=== PATIENT | female | born 1965 | race Caucasian/White ===

== ENCOUNTER 2019-11-23 09:18 | Emergency (ER) | payer BC, OTHER ==
--- NOTE | 2019-11-23 10:02 | ED ---
Skin Complaint - HPI Summary HPI Summary: Patient is a 54-year-old female who presents emergency department for ongoing rash to chin 2 weeks. Patient states she had a small pimple to the chin which she squeezed about 2 weeks ago. Patient states area progressively became more red, irritated and itchy. Pt. states area is draining a yellowish/clear drainage. Patient has been seen by her PCP a few times over the last 2 weeks and has been on Keflex, bactroban, clindamycin and currently on Augmentin. No significant past medical hx. Pt. states that PCP is trying to get her derm apt. Pt. denies fever, N/V. Pt. states redness is spreading and extremely itchy. Sxs are mild in severity. No current modifying factors. - History of Current Complaint Chief Complaint: EDRashSkinAbscess Time Seen by Provider: 11/23/19 09:41 Stated Complaint: RASH ON FACE PER PT Hx Obtained From: Patient Pain Intensity: 10 - Allergy/Home Medications Allergies/Adverse Reactions: Allergies Allergy/AdvReac Type Severity Reaction Status Date / Time adhesive Allergy Rash Verified 11/23/19 09:22 Home Medications: Home Medications RX: Amoxicillin/Clavulanate TAB* [Augmentin TAB 875*] 1 tab PO BID 11/23/19 [ History Confirmed 11/23/19] RX: DULoxetine DR CAP* [Cymbalta CAP*] 20 mg PO BID 11/23/19 [History Confirmed 11/23/19] PMH/Surg Hx/FS Hx/Imm Hx Previously Healthy: Yes Endocrine/Hematology History: Denies: Hx Diabetes Cardiovascular History: Denies: Hx Hypertension, Hx Pacemaker/ICD GI History: Reports: Hx Gastroesophageal Reflux Disease - NO MEDICATION FOR History: Denies: Hx Renal Disease Musculoskeletal History: Reports: Hx Arthritis - SHOULDERS AND RIGHT PINKY, ? BACK Sensory History: Reports: Hx Contacts or Glasses - GLASSES Denies: Hx Hearing Aid Opthamlomology History: Reports: Hx Contacts or Glasses - GLASSES Neurological History: Reports: Other Neuro Impairments/Disorders - HEADACHES OFTEN Psychiatric History: Reports: Hx Anxiety - ON MEDICATION FOR, Hx Depression - ON MEDICATION FOR Denies: Hx Panic Disorder - Cancer History Hx Chemotherapy: No Hx Radiation Therapy: No - Surgical History Surgery Procedure, Year, and Place: [id number]. TUBAL LIGATION- [place] RIGHT WRIST CARPAL TUNNEL RELEASE-[facility] LEFT CARPAL TUNNEL Hx Anesthesia Reactions: No Infectious Disease History: No Infectious Disease History: Denies: Traveled Outside the [place] in Last 30 Days - Family History Known Family History: Positive: Non-Contributory - Social History Occupation: Employed Full-time Lives: Alone Alcohol Use: Occasionally Substance Use Type: Reports: Marijuana Substance Use Comment - Amount & Last Used: [id number] USED 03/28/16 Smoking Status (MU): Light Every Day Tobacco Smoker Amount Used/How Often: 1/2 PPD OFF AND ON X 30 YEARS Have You Smoked in the Last Year: Yes Review of Systems Constitutional: Negative Negative: Fever, Chills Gastrointestinal: Negative Positive: Other - Rash to chin All Other Systems Reviewed And Are Negative: Yes Physical Exam Triage Information Reviewed: Yes Vital Signs On Initial Exam: Initial Vitals Temp Pulse Resp BP Pulse Ox 97.4 F 100 16 159/112 98 11/23/19 09:19 11/23/19 09:19 11/23/19 09:19 11/23/19 09:19 11/23/19 09:19 Vital Signs Reviewed: Yes Appearance: Positive: Well-Appearing - Pt. sitting on bed in NAD. Holding ice pack to chin. Skin: Positive: Warm, Dry Head/Face: Positive: Other - Large area of erythema over chin. Area is wet with yellowish crusting. Mild edema. No induration or fluctuance. Eyes: Positive: Normal, EOMI, SUZI, Conjunctiva Clear Neck: Positive: Supple, Nontender, No Lymphadenopathy Neurological: Positive: Normal, CN Intact II-III Psychiatric: Positive: Affect/Mood Appropriate Procedures - Sedation Patient Received Moderate/Deep Sedation with Procedure: No Diagnostics - Vital Signs Vital Signs Temp Pulse Resp BP Pulse Ox 11/23/19 09:19 97.4 F 100 16 159/112 98 - Laboratory Result Diagrams: 11/23/19 10:08 11/23/19 10:08 Lab Statement: Any lab studies that have been ordered have been reviewed, and results considered in the medical decision making process. Course/Dx - Course Course Of Treatment: Pt. with ongoing redness and itching to chin. Afebrile and nontoxic appearing. Exam most consistant with a staff infection. Pt. examined by Dr. Barbosa as well. Wound culture obtained. Basic labs obtained to r/o systemic infection. Minimal elevation in WBC, CRP normal. Will have pt. continue augmentin. Advised to not apply any creams of lotions. Atarax rx for itch. To call derm to jane morning for apt. Will return for fever, increased redness, swelling. Pt. understands and agrees with plan. - Differential Diagnoses - Skin Complaint Differential Diagnoses: Abscess, Cellulitis, Contact Dermatitis, Impetigo - Diagnoses Provider Diagnoses: Staphylococcal infection of skin, Rash Discharge ED - Sign-Out/Discharge Documenting (check all that apply): Patient Departure - Discharge Plan Condition: Good Disposition: HOME Prescriptions: hydrOXYzine HCL TAB* [Atarax 25 MG TAB*] 25 mg PO QID PRN #12 tab PRN Reason: Itching Patient Education Materials: Impetigo (ED) Referrals: Ebony Wise MD [Primary Care Provider] - Betzaida Dorantes [Medical Doctor] - Additional Instructions: Call Dr. Dorantes's office tomorrow morning to schedule a follow up appointment as soon as possible Continue Augmentin as directed Keep area clean and dry Return to ER for fever, spreading redness/swelling or if concerned - Billing Disposition and Condition Condition: GOOD Disposition: Home
[2019-11-23 10:16] LABS: ABS Basophils 0.1 10^3/ul (0-0.2); ABS Eosinophils 0.3 10^3/ul (0-0.6); ABS Lymphocytes 2.7 10^3/ul (1.0-4.8); ABS Monocytes 0.4 10^3/ul (0-0.8); ABS Neutrophils 8.1 10^3/ul (1.5-7.7); Eosinophil % 2.5 %; Hematocrit 46 % (35-47); Hemoglobin 16.2 g/dL (12.0-16.0); Mean Corpuscular HGB Conc 35 g/dL (31-36); Mean Corpuscular Hemoglobin 33 pg (27-31); Mean Corpuscular Volume 95 fL (80-97); Mean Platelet Volume 8.2 fL (7.4-10.4); Nucleated Red Blood Cells % 0.1; Platelet Count 231 10^3/uL (150-450); Red Blood Count 4.91 10^6 /uL (3.70-4.87); Red Cell Distribution Width 13 % (10-15); White Blood Count 11.7 10^3/uL (3.5-10.8)
[2019-11-23 10:31] LABS: Albumin 4.3 g/dL (3.2-5.2); Albumin/Globulin Ratio 1.5 (1-3); BUN/Creatinine Ratio 18.2 (8-20); C Reactive Protein 1.47 mg/L (<8.01); Calcium 9.7 mg/dL (8.6-10.3); EGFR African American 112.5 (>60); Globulin 2.9 g/dL (2-4); Total Bilirubin 0.5 mg/dL (0.2-1.0); Total Protein 7.2 g/dL (6.4-8.9)
[2019-11-23] MEDS ORDERED: hydrOXYzine HCL TAB* 25 MG PO ONE (11:07)
[2019-11-23 11:28] VITALS: BP 146/72
== END 2019-11-23 11:27 | disposition home or self-care (01) ==
LOC: ED 09:18
DX: L08.89 Other specified local infections of the skin and subcutaneous tissue (principal); B95.8 Unspecified staphylococcus as the cause of diseases classified elsewhere; K21.9 Gastro-esophageal reflux disease without esophagitis; F41.9 Anxiety disorder, unspecified; F32.9 Major depressive disorder, single episode, unspecified; F17.200 Nicotine dependence, unspecified, uncomplicated; Z79.899 Other long term (current) drug therapy
CPT/HCPCS: 36415; 80053; 85025; 86140; 87070; 87205; 99282; A9270-GY